=== PATIENT | female | born 1980 | race Caucasian/White ===

== ENCOUNTER 2020-04-09 13:12 | Emergency (ER) | payer MEDICAID ==
[~2020-04-09] VITALS: Ht 165.1 cm; Wt 54.0 kg
[2020-04-09] MEDS ORDERED: ONDANSETRON 2MG/ML, 2ML IVPush ONE (13:30)
[2020-04-09] MEDS ORDERED: HYDROmorphone 2 MG/ML, 1ML IVPush PRN (13:30)
[2020-04-09] MEDS ORDERED: SODIUM CHLORIDE FLUSH 10ML SYR IVF ONE (13:30)
[2020-04-09 13:50] LABS: BASOPHILS % (AUTO) 0 % (0-1); EOSINOPHILS % (AUTO) 0 % (1-7); LYMPHOCYTES % (AUTO) 11 % (22-44); MEAN CORPUSCULAR HEMOGLOBIN 26.5 pg (27.0-34.8); MEAN CORPUSCULAR HGB CONC 32.5 g/dL (32.4-35.8); MEAN PLATELET VOLUME 6.9 fL (7.4-10.4); MONOCYTES % (AUTO) 3 % (2-9); NEUTROPHILS % (AUTO) 86 % (42-75); PLATELET COUNT 393 x10^3/uL (130-400); RED BLOOD COUNT 4.89 x10^6/uL (3.82-5.3); RED CELL DISTRIBUTION WIDTH 13.8 % (9.6-15.2)
[2020-04-09] MEDS ORDERED: HYDROmorphone 2 MG/ML, 1ML ONE (13:51)
[2020-04-09] MEDS ORDERED: ONDANSETRON 2MG/ML, 2ML ONE (13:51)
[2020-04-09 13:55] LABS: ALBUMIN 3.2 g/dL (3.4-5.0); ANION GAP 4 mmol/L (5-15); CALCIUM 8.5 mg/dL (8.5-10.1); CHLORIDE 108 mmol/L (98-107); CREATININE 1.04 mg/dL (0.55-1.02)
[2020-04-09 13:59] LABS: MD NO
--- NOTE | 2020-04-09 14:21 | NUR ---
INSERTED 20 GA IV LT AC, GAVE MEDICATIONS PER MD ORDER, COLLECTED UA. VITAL SIGNS STABLE.
[2020-04-09 14:49] LABS: MICROSCOPIC NOT IND
--- NOTE | 2020-04-09 14:54 | NUR ---
PT OFF UNIT AT IMAGING.
[2020-04-09] MEDS ORDERED: OMNIPAQUE 350 MG/ML, 100ML BOTTLE ONE (15:05)
[2020-04-09 15:57] VITALS: BP 97/54
== END 2020-04-09 16:26 | disposition home or self-care (01) ==
LOC: ED 15:37
DX: R10.84 Generalized abdominal pain (principal); R10.31 Right lower quadrant pain; R30.0 Dysuria
CPT/HCPCS: 36415; 74177; 80048; 81003; 82040; 84703; 85025; 96374; 96375; 99285; J1170; J2405; Q9967